=== PATIENT | male | born 1975 | race Caucasian/White ===

== ENCOUNTER → 2022-07-30 11:47 | Outpatient (BNVA) | payer OTHER, SELFPAY | PROVIDERS: PCP Internal Medicine; Visit Provider Physician Assistant | DX: S93.492A Sprain of other ligament of left ankle, initial encounter (principal); S90.811A Abrasion, right foot, initial encounter; X50.9XXA Other and unspecified overexertion or strenuous movements or postures, initial encounter | CPT/HCPCS: 73610; 73630; 99204 ==

== ENCOUNTER → 2022-08-06 10:46 | Outpatient (BNVA) | payer OTHER, SELFPAY | PROVIDERS: PCP Internal Medicine; Visit Provider Physician Assistant | DX: S93.492A Sprain of other ligament of left ankle, initial encounter (principal); X50.9XXA Other and unspecified overexertion or strenuous movements or postures, initial encounter | CPT/HCPCS: 99213 ==

== ENCOUNTER → 2022-08-14 13:03 | Outpatient (BNVA) | payer OTHER, SELFPAY | PROVIDERS: PCP Internal Medicine; Visit Provider Physician Assistant | DX: S93.492A Sprain of other ligament of left ankle, initial encounter (principal); X50.9XXA Other and unspecified overexertion or strenuous movements or postures, initial encounter | CPT/HCPCS: 99213 ==

== ENCOUNTER → 2022-08-18 13:12 | Outpatient (BNVA) | payer OTHER, SELFPAY | PROVIDERS: PCP Internal Medicine; Visit Provider Internal Medicine | DX: S93.402A Sprain of unspecified ligament of left ankle, initial encounter (principal); X50.9XXA Other and unspecified overexertion or strenuous movements or postures, initial encounter | CPT/HCPCS: 99213 ==

== ENCOUNTER 2022-09-09 09:59 | Outpatient (REF) | payer OTHER, SELFPAY ==
[2022-09-09 10:31] LABS: COVID-19 Test Positive (Negative); IDNOW Serial# BCCEAD1C
== END 2022-09-09 10:00 | disposition home or self-care (01) ==
LOC: HO.LAB 09:59
PROVIDERS: Visit Provider Internal Medicine
DX: Z20.822 Contact with and (suspected) exposure to COVID-19 (principal)
CPT/HCPCS: 87635; C9803

== ENCOUNTER 2023-06-03 09:58 | Outpatient (REF) | payer OTHER, SELFPAY ==
[2023-06-03 11:07] LABS: Hematocrit 48.7 % (42.0-52.0); Hemoglobin 17.1 g/dl (14.0-18.0); Mean Corpuscular HGB Conc 35.1 g/dl (31.0-36.0); Mean Corpuscular Hemoglobin 30.1 pg (27.0-33.0); Mean Corpuscular Volume 85.7 fL (80.0-98.0); Mean Platelet Volume 9.7 fL (9.4-12.4); Platelet Count 331 X10*3/uL (160-400); Red Blood Count 5.68 X10*6/uL (4.60-5.80); Red Cell Distribution Width 12.7 % (11.0-16.0); White Blood Count 7.9 X10*3/uL (4.8-10.8)
[2023-06-03 11:16] LABS: INTERNATIONAL NORM RATIO 0.9 (0.9-1.1); Prothrombin Time 11.4 SEC (11.1-13.3)
[2023-06-03 11:58] LABS: Alanine Aminotransferase 25 U/L (0-40); Albumin Level 4.4 g/dL (3.5-5.0); Alkaline Phosphatase 88 U/L (39-117); Anion Gap 11 (12-20); Aspartate Amino Transferase 23 U/L (5-37); Bilirubin Total 0.8 mg/dL (0.0-1.0); Blood Urea Nitrogen 11 mg/dL (9-16); Calcium 9.1 mg/dL (8.4-10.2); Carbon Dioxide 25 mmol/L (22-29); Chloride 109 mmol/L (96-108); Estimated Glomerular Filt Rate > 60; Glucose Random 85 mg/dL (60-115); Potassium 3.7 mmol/L (3.3-5.1); Sodium 141 mmol/L (135-145); Total Protein 7.4 g/dL (6.5-8.0)
[2023-06-03 12:07] LABS: Hepatitis A Antibody IgG Nonreactive (Nonreactive); ~Hepatitis A Antibody IgG 0.32 S/CO (0.00-0.99)
[2023-06-03 12:15] LABS: HBS Num1 19.68 mIU/mL (0-7.99); HBsAGNum1 0.42 S/CO (0.00-0.99); Hepatitis B Core Antibody Nonreactive (Nonreactive); Hepatitis B Surface Antigen Negative (Negative); ~HepC Num1 0.12 S/CO (0.00-0.79); ~Hepatitis B Surface Antibody REACTIVE (Nonreactive); ~Hepatitis C Antibody Nonreactive (Nonreactive)
[2023-06-08 15:08] LABS: HCV RNA PCR Qn <1.18 NOT DETECTED Log IU/mL (NOT DETECTED); HCV RNA PCR Qn <15 NOT DETECTED IU/mL (NOT DETECTED)
== END 2023-06-03 09:59 | disposition home or self-care (01) ==
LOC: HO.LAB 09:58
PROVIDERS: PCP Internal Medicine; Visit Provider Internal Medicine
DX: R76.8 Other specified abnormal immunological findings in serum (principal); Z12.11 Encounter for screening for malignant neoplasm of colon; Z12.12 Encounter for screening for malignant neoplasm of rectum
CPT/HCPCS: 36415; 80053; 85027; 85610; 86704; 86706; 86708; 86803; 87340; 87522

== ENCOUNTER 2023-06-03 09:58 | Outpatient (AMB) | payer OTHER, SELFPAY ==
--- NOTE | 2023-06-03 10:00 | MHC.OFFVIS ---
Intake Vital Signs 06/03/23 10:01 Height 5 ft 10 in Weight 209 lb 7.026 oz BMI 30.0 BP 121/79 Blood Pressure Location Lt brachial Position Sitting Pulse 68 Intake Visit Reasons: [place]/Hep C Intake Note: Kai presents in the office as a new patient for colonoscopy and hep C. CC: He states that he is not having any concerns today. 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 Pt himself does not have any gastrointestinal complaints to include abd pain, N,V,D, rectal bleeding. He is not aware of chronic HCV status and is quite surprised to hear this is why he has been referred here. Drinks etOH occasionally, does not smoke. No fam hx of liver disease. No fam hx of CRC. 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 PFSH Surgical History Hx of hernia repair Social History Alcohol intake: current Alcohol intake frequency: a few times a week Patient Tobacco Use Status: Never used Tobacco Review of Systems Const All systems reviewed & are unremarkable except as noted in HPI and below Physical Exam Vital Signs: Last Vital Signs Pulse 68 06/03/23 10:01 BP 121/79 06/03/23 10:01 BMI result Body Mass Index 30.0 Gen appear: NAD HEENT: nonicteric, no cervical lymphadenopathy Chest: CTA CVS: Regular S1/S2 Abd: soft, nontender, nondistended, bowel sounds + Ext: no peripheral edema Neuro: A/Ox3, noted to move all extremities spontaneously Psych: interacting appropriately Assessment & Plan Assessment & Plan (1) Encounter for colorectal cancer screening: Code(s): Z12.11 - Encounter for screening for malignant neoplasm of colon; Z12.12 - Encounter for screening for malignant neoplasm of rectum (2) Hepatitis C antibody positive in blood: Code(s): R76.8 - Other specified abnormal immunological findings in serum Plan Reviewed with the pt that unclear if the referral is for HCV screening or for further evaluation for chronic HCV. Further labs ordered to clarify this. Depending on the results will review next steps. Also due for CRC screening however will hold off scheduling colonoscopy at this time, in case he needs an EGD alongside based on above. Follow up in 4 weeks. Orders: Orders Comprehensive Met. Panel Today R76.8 - Other specified abnormal immunological findings in serum Prothrombin Time INR Today R76.8 - Other specified abnormal immunological findings in serum Complete Blood Count no Diff Today R76.8 - Other specified abnormal immunological findings in serum Hepatitis B Surface Antibody Today R76.8 - Other specified abnormal immunological findings in serum HCV RNA QN PROG TO GENOTYPE Today R76.8 - Other specified abnormal immunological findings in serum Hepatitis A IgG Today R76.8 - Other specified abnormal immunological findings in serum Hepatitis B Core Antibody Today R76.8 - Other specified abnormal immunological findings in serum Hepatitis B Surface Antigen Today R76.8 - Other specified abnormal immunological findings in serum Hepatitis C Antibody Today R76.8 - Other specified abnormal immunological findings in serum Coding Level of Care Code New Pt Level 4 (91211) Diagnoses Encounter for colorectal cancer screening Z12.11; Z12.12 Hepatitis C antibody positive in blood R76.8
[2023-06-03 10:01] VITALS: BP 121/79; PULSE 68
== END 2023-06-03 10:48 | disposition home or self-care (01) ==
PROVIDERS: PCP Internal Medicine; Visit Provider Internal Medicine
DX: R76.8 Other specified abnormal immunological findings in serum (principal)
CPT/HCPCS: 99204

== ENCOUNTER 2023-07-01 09:38 | Outpatient (AMB) | payer OTHER, SELFPAY ==
--- NOTE | 2023-07-01 09:39 | MHC.OFFVIS ---
Intake Vital Signs 07/01/23 09:42 Height 5 ft 10 in Weight 213 lb 13.574 oz BMI 30.7 BP 139/95 H Blood Pressure Location Lt brachial Position Sitting Pulse 60 Intake Visit Reasons: 4 week fu Intake Note: Kai presents in the office as a 4 week follow up. CC: States he is not having any concerns today. Allergies No Known Allergies Allergy (Mild, Unverified 06/03/23 10:02) N/A HPI HPI Comments History of Present Illness Details 48y.o M with no significant PMH who is here for colonoscopy and hepatitis C . 06/03/23: Pt himself does not have any gastrointestinal complaints to include abd pain, N,V,D, rectal bleeding. He is not aware of chronic HCV status and is quite surprised to hear this is why he has been referred here. Drinks etOH occasionally, does not smoke. No fam hx of liver disease. No fam hx of CRC. 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 07/01/23: Labs reviewed. Negative for chronic HBV or HCV. Pt was also able to clarify from his PCP who sent him for HCV screening and not treatment. Otherwise no GI issues. Due for CRC screening. PFSH Surgical History Hx of hernia repair Social History Alcohol intake: current Alcohol intake frequency: a few times a week Patient Tobacco Use Status: Never used Tobacco Review of Systems Const All systems reviewed & are unremarkable except as noted in HPI and below Physical Exam Vital Signs: Last Vital Signs Pulse 60 07/01/23 09:42 BP 139/95 H 07/01/23 09:42 BMI result Body Mass Index 30.7 Gen appear: NAD HEENT: nonicteric, no cervical lymphadenopathy Chest: CTA CVS: Regular S1/S2 Abd: soft, nontender, nondistended, bowel sounds + Ext: no peripheral edema Neuro: A/Ox3, noted to move all extremities spontaneously Psych: interacting appropriately Assessment & Plan Assessment & Plan (1) Encounter for colorectal cancer screening: Code(s): Z12.11 - Encounter for screening for malignant neoplasm of colon; Z12.12 - Encounter for screening for malignant neoplasm of rectum Plan Discussed both one step and two step testing with the pt. He opts for screening colo. This will be set up on elective basis. Split PEG prep reviewed with the pt and handout provided as well. Follow up after scope. Medications: New peg 3350-electrolytes [id number] -5.86 gram (Golytely) as per split prep instructions, until fecal effluent is clear 240 mL PO Q10M 4,000 mL 0RF colonoscopy Coding Level of Care Code Est Pt Level 3 (01017) Diagnoses Encounter for colorectal cancer screening Z12.11; Z12.12
[2023-07-01 09:42] VITALS: BP 139/95; PULSE 60; BMI 30.7
== END 2023-07-01 12:46 | disposition home or self-care (01) ==
PROVIDERS: PCP Internal Medicine; Visit Provider Internal Medicine
DX: Z12.11 Encounter for screening for malignant neoplasm of colon (principal); Z12.12 Encounter for screening for malignant neoplasm of rectum; Z01.818 Encounter for other preprocedural examination
CPT/HCPCS: 99213

== ENCOUNTER → 2023-07-01 09:38 | Outpatient (BNVA) | payer OTHER, SELFPAY | PROVIDERS: PCP Internal Medicine; Visit Provider Internal Medicine ==